=== PATIENT | female | born 1945 | race Caucasian/White ===

== ENCOUNTER → 2016-07-20 | Outpatient (CLI) | payer OTHER, BC ==
--- NOTE | 2016-07-20 11:26 | DIAGNOSTIC IMAGING REPORT ---
CT SCAN OF THE CHEST WITHOUT IV CONTRAST CLINICAL HISTORY: Follow-up pulmonary nodules. COMPARISON STUDY: CT dated 03/22/2016. TECHNIQUE: CT scan of the thorax was performed from the thoracic inlet to the upper abdomen. Images are reviewed in the axial, sagittal, and coronal planes. IV contrast was not administered for this examination. CT DOSE: 520.08 mGy.cm FINDINGS: Thyroid: Imaged portions of the thyroid gland are normal in size and attenuation. Thoracic aorta: There is atherosclerotic calcification of the thoracic aorta, which is normal in caliber and demonstrates standard 3-vessel arch anatomy. Heart: The heart is top normal in size and without pericardial effusion. The coronary arteries are densely calcified. The pulmonary trunk is normal in caliber. Lungs and pleural spaces: There is no airspace consolidation typical for pneumonia or pleural effusion. Dependent atelectasis is observed. The trachea and central airways are clear. A small fat-containing Bochdalek hernia is noted at the left lung base. There are numerous (greater than 10) small pulmonary and pleural-based nodules. The majority of these measure less than 3 mm. The largest nodule is located in the right lower lobe as seen on image #138 and measures 8 mm. These nodules are unchanged and a 03/22/2016 examination. No new pulmonary nodules are identified. Mediastinum: There is no mediastinal lymphadenopathy. Kimmy: Not well assessed without IV contrast. Axillae: There is no axillary lymphadenopathy. Upper abdomen: Cholecystectomy clips are noted. The partially imaged kidneys demonstrate cortical atrophy. There are 2 nonobstructing calculi seen in the upper pole of the left kidney which measure up to 6 mm. A tiny hiatal hernia is observed. Skeletal structures: The skeletal structures are osteopenic. No lytic or blastic bony lesions are seen. IMPRESSION: 1. There are numerous (greater than 10) indeterminant but low suspicion pulmonary and pleural-based nodules. The largest measures up to 8 mm as seen in the right lower lobe, and these are unchanged from the 03/22/2016 examination. Continued follow-up is recommended to document 2 years of stability. See below. 2. There is no airspace consolidation or pleural effusion. 3. Nonobstructing left renal calculi. 4. Additional findings as above. Please refer to below summary of Fleischner criteria recommendations for follow-up of incidental CT nodules (Jordana Rosenthal, Guidelines for management of small pulmonary nodules detected on CT scans: A statement from the Fleischner Society, Radiology 237: [phone].) Low Risk Patient: Minimal or no smoking or other known risk factors for malignancy <=4 mm: No follow-up needed. >4-6 mm: Initial follow-up CT at 12 months; if unchanged, no further follow-up. >6-8 mm: Initial follow-up CT at 6-12 months then at 18-24 months if no change. >8 mm: Follow-up CT at \R\3, 9, 24 months, or PET and/or biopsy. High Risk Patient: History of smoking or other known risk factors <=4 mm: Follow-up at 12 months; if unchanged, no further follow-up. >4-6 mm: Initial follow-up CT at 6-12 months then at 18-24 months if no change. >6-8 mm: Initial follow-up CT at 3-6 months then at 9-12 and 24 months if no change. >8 mm: Same as low risk patient. Note: Nodule size measured as average of length and width. Ground glass or partly solid nodules may require longer follow-up to exclude indolent adenocarcinoma. Electronically signed by: Tushar Silva M.D. 07/20/2016 11:25 AM Dictated Date/Time: 07/20/2016 11:18 AM
== END | disposition home or self-care (01) ==
LOC: C.CTS 11:03
PROVIDERS: ATTEND Internal Medicine Pulmonary Disease
DX: R91.8 Other nonspecific abnormal finding of lung field (principal)

== ENCOUNTER → 2017-04-29 | Outpatient (CLI) | payer OTHER, BC ==
--- NOTE | 2017-04-29 11:13 | DIAGNOSTIC IMAGING REPORT ---
(CHEST) THORAX WITHOUT CT DOSE: 521.29 mGycm CLINICAL HISTORY: 71 years-old Female with MULTIPLE LUNG NODULES. Follow-up study to assess pulmonary nodules TECHNIQUE: Multiaxial CT images of the chest were performed without contrast. A dose lowering technique was utilized adhering to the principles of ALARA. COMPARISON: CT chest 07/20/2016 and 03/22/2016 FINDINGS: The thyroid is homogeneous. No pathologic adenopathy about the chest identified. Heart is normal in size without pericardial effusion. There is moderate mixed plaquing of the thoracic aorta. There is no pneumothorax or pleural effusion. Minimal subpleural bleb formations are noted along apices. Again noted are greater than 10 noncalcified solid pulmonary nodules throughout the lungs bilaterally, several of which are pleural-based. The largest nodule is 8 mm within the superior segment right lower lobe as seen on image 154 of series 4, unchanged dating back to 03/19/2016 the remainder of the pulmonary nodules measure in the 2-4 mm range with a 5 mm pulmonary nodule seen within the medial segment right middle lobe on image 207 series 4, also unchanged. 5 mm pleural-based nodule of the lateral basal segment left lower lobe on image 230 of series 4 is also unchanged. No new or enlarging pulmonary nodules are identified. Central airways are patent. Small left Bochdalek hernia. Imaged upper abdominal structures are unremarkable. The soft tissues are within normal limits. Bones appear intact. Multilevel endplate spurring of the spine. IMPRESSION: 1. No acute cardiopulmonary process. 2. Multiple bilateral solid noncalcified pulmonary nodules are again seen within a multilobar distribution, most of which measure in the 2-4 mm range. The largest nodule is again noted to be within the superior segment right lower lobe measuring up to 8 mm. These appear stable dating back to 03/19/2016. Follow-up guidelines are provided below. 3. Additional findings as above. Please refer to below summary of Fleischner criteria recommendations for follow-up of incidental CT nodules (Jordana Rosenthal, Guidelines for management of small pulmonary nodules detected on CT scans: A statement from the Fleischner Society, Radiology 237: [phone].) SOLID NODULES Multiple nodules size: <6 mm * Low risk patients: no routine follow-up * high risk patients: optional CT at 12 months Multiple nodules size: 6-8 mm * Low risk patients: follow-up at 3-6 months, then consider further follow-up at 18-24 months * high risk patients: follow-up at 3-6 months, then at 18-24 months if no change Multiple nodules size: >8 mm * Low risk patients: follow-up at 3-6 months, then consider further follow-up at 18-24 months * high risk patients: follow-up at 3-6 months, then at 18-24 months if no change Note: newly detected indeterminate nodule in persons 35 years of age or older. * Low risk patients: minimal or absent history of smoking and/or other known risk factors * high risk patients: history of smoking or of other known risk factors (e.g. first degree relative with lung cancer, or exposure to asbestos, radon, uranium) * if a nodule up to 8 mm is partly solid or is ground glass further follow-up is required after 24 months to exclude possible slow growing adenocarcinoma (YUNG) The above report was generated using voice recognition software. It may contain grammatical, syntax or spelling errors. Electronically signed by: Aba Colón M.D. 04/29/2017 11:12 AM Dictated Date/Time: 04/29/2017 11:01 AM
== END | disposition home or self-care (01) ==
LOC: C.CTS 10:28
PROVIDERS: ATTEND Internal Medicine Pulmonary Disease
DX: R91.8 Other nonspecific abnormal finding of lung field (principal)

== ENCOUNTER 2022-08-19 15:20 | Observation (INO) ==
[2022-08-19] MEDS ORDERED: ACETAMINOPHEN 1,000 MG/100 ML VIAL IV STA (15:47)
[2022-08-19] MEDS ORDERED: CEFEPIME 2,000 MG/20 ML VIAL IV STA (15:51)
--- NOTE | 2022-08-19 15:57 | Emergency Department Note ---
Impression & Plan COVID-19, Hypothermia, Renal insufficiency, Dehydration, Hypertensive urgency, Intractable nausea and vomiting, Elevated lactic acid level ED Provider Note NAME: REMIGIO AMIN AGE: 76 SEX: F ARRIVES VIA: Ambulance INFORMANT: Patient ED PROVIDER(S): Carter Alexandra MD CHIEF COMPLAINT: Confusion, weakness, Covid-19 PLAN: Disposition: Admit MEDICAL DECISION MAKING: The patient is a 76-year-old woman with a past medical history of hypertension, hyperlipidemia with report of recent COVID-19 infection in the past 10 days who presents to the emergency department via EMS with worsening generalized weakness and confusion over the past several days. On arrival is made to emergency department the patient is a poor historian is alert to self and place but cannot provide details. The patient was given DuoNeb for treatment of shortness of breath by EMS. On initial evaluation the patient is noted to be hypothermic with rectal temperature of 35.7. Heart rate in the 50s and blood pressure 200/60s. O2 saturation is 100% on room air. Given patient's hypothermia with confusion she was treated for sepsis and received warmed IV fluid hydration with 30 cc/kg of normal saline per ideal body weight, warming blanket, empiric antibiotics with cefepime. EKG without overt acute ischemia. CXR with interstitial thickening has nonspecific. WBC, H/H and platelets within normal limits. Chemistry without metabolic acidosis. VBG demonstrates mild alkalemia likely secondary to hyperventilation with PCO2 of 34. Creatinine is 1.5 without prior values for comparison. BUN 38 with BUN/creatinine> 20 consistent with patient's clinically dry appearance. Initial lactic acid was 3.7 with repeat lactic acid following IV fluid hydration clear to 1.7. LFTs unremarkable. High-sensitivity troponin 5.8, within normal limits. Lipase within normal limits. Procalcitonin is undetectable. TSH within normal limits. UA demonstrates WBCs with leuk esterase although with no bacteria and 20-30 epithelial cells. Respiratory viral panel/[employer] confirms COVID-19 infection with positive COVID-[address] of the head was performed and was negative for acute abnormality. CT abdomen pelvis also negative for acute abnormality. CT of the chest negative for PE further characterizing interstitial thickening however no focal consolidation. Upon repeat evaluations the patient did show progressive improvement in mental status though did report continued headache despite improvement initially from systolic blood pressure from the 230s to 180s but then would spike again with episode of nausea and vomiting. Following treatment with additional hydration and treatment with dexamethasone, diphenhydramine and Compazine for migraine blood pressure improved significantly to the 140s-150s/60s-80s. Patient and family at bedside agree with plan for admission for further management. Case was discussed with Dr. Mueller, [facility], who will evaluate the patient for admission. Triage Nursing notes reviewed and agree them. Prior/outside medical records reviewed Vital Signs: reviewed Differential diagnosis: Infection, dehydration, metabolic abnormality, hypo/hyperglycemia, electrolyte disturbance, anemia, hypoxia, cardiac sources, intracerebral event, toxicologic, neurologic, as well as other pathologies. ER treatment provided: See below. Diagnostics interpreted by me: ECG: Sinus bradycardia, 56 bpm, no ectopy, no overt ST elevation or depression, QTc 482, QRS 92. Cardiac Monitoring: An order for continuous cardiac monitoring was placed and demonstrated Sinus bradycardia, 56 bpm, no ectopy. Laboratory studies: See below Imaging studies: See below Consultation(s): Case was discussed with Dr. Mueller, [facility], who will evaluate the patient for admission. HPI: The patient is a 76-year-old woman with a past medical history of hypertension, hyperlipidemia with report of recent COVID-19 infection in the past 10 days who presents emergency department with worsening generalized weakness and confusion over the past several days. On arrival is made to emergency department the patient is a poor historian is alert to self and place but cannot provide details. The patient was given DuoNeb for treatment of shortness of breath by EMS. ROS: See above HPI for pertinent positives & negatives. A total of 10 systems reviewed and were otherwise negative. VITALS:See Below PHYSICAL EXAMINATION: GENERAL: Awake, alert, ill-appearing, in no distress HENT: Normocephalic, atraumatic. Oropharynx with dry mucous membranes and otherwise unremarkable. EYES: Normal conjunctiva. Sclera non-icteric. EOMI. No nystamgus. PEARRL. NECK: Supple. No nuchal rigidity. FROM. No JVD. RESPIRATORY: Clear to auscultation. CARDIAC: Regular rate, normal rhythm. Extremities warm and well perfused. Pulses equal. ABDOMEN: Soft, non-distended. No tenderness to palpation. No rebound or guarding. No masses. RECTAL: Deferred. MUSCULOSKELETAL: Chest examination reveals no tenderness. The back is symmetrical on inspection without obvious abnormality. There is no CVA tenderness to palpation. No joint edema. LOWER EXTREMITIES: Calves are equal size bilaterally and non-tender. No edema. No discoloration. NEURO: Mildly confused. Alert to self and place. No sensory or motor deficits noted. Generalized weakness with 4/5 strength and SILT x 4 extremities. DTRs wnl. No clonus. SKIN: No rash or jaundice noted. ED COURSE: Critical Care: I have personally spent greater than 75 minutes of critical care time in the direct management of this patient. This includes bedside care, interpretation of diagnostic studies, and testing, discussion with consultants, patient, and family members, and other required patient management activities. This 75 minutes is in excess of all separately billable procedures. Carter Alexandra MD Past Med/Surg History Medical History CAD (coronary artery disease) Diverticulosis Hyperlipidemia Pulmonary nodule Family History Other Family history non-contributory Social History Smoking Status: Former smoker Cigarettes Per Day: 40; Feels Safe at Home: Yes Allergies Allergies Allergy/AdvReac Type Severity Reaction Status Date / Time latex Allergy Hives Verified 08/19/22 16:15 Sulfa (Sulfonamide Allergy Hives Verified 08/19/22 16:15 Antibiotics) ciprofloxacin [From Cipro] AdvReac Severe Abdominal Verified 08/19/22 16:15 Pain cimetidine [From Tagamet] AdvReac Nausea Verified 08/19/22 16:15 metronidazole [From Flagyl] AdvReac Nausea Verified 08/19/22 16:15 SULFA Allergy Unknown HIVES Uncoded 08/19/22 16:15 Home Meds Home Medications Medication Instructions Recorded Confirmed Elderberry Tab 500 mg PO DAILY 08/19/22 08/19/22 ascorbic acid (vitamin C) 500 mg 500 mg PO DAILY 08/19/22 08/19/22 tablet (Vitamin C) aspirin 81 mg tablet,delayed 81 mg PO DAILY 08/19/22 08/19/22 release calcium carbonate-vitamin D3 600 1 tab PO DAILY 08/19/22 08/19/22 mg-125 unit tablet conjugated estrogens 0.625 mg/gram 0.625 mg vaginal 2XWK 08/19/22 08/19/22 vaginal cream (Premarin) dicyclomine 10 mg capsule 10 mg PO QID 08/19/22 08/19/22 fluticasone propionate 50 2 spray intranasal QAM 08/19/22 08/19/22 mcg/actuation nasal spray,suspension linaclotide 72 mcg capsule 72 mcg PO QAM 08/19/22 08/19/22 (Linzess) lutein 25 mg-zeaxanthin 5 mg 1 cap PO DAILY 08/19/22 08/19/22 capsule (Ocuvite Lutein) multivitamin 1 tab PO DAILY 08/19/22 08/19/22 ramipril 5 mg capsule 5 mg PO QAM 08/19/22 08/19/22 rosuvastatin 40 mg tablet 40 mg PO QAM 08/19/22 08/19/22 zinc 50 mg tablet 50 mg PO DAILY 08/19/22 08/19/22 Results & Data (ED) Vital Signs Vital Signs - 24 hr 08/19/22 15:25 08/19/22 15:30 08/19/22 15:55 Temperature Temperature Source Pulse Rate 56 L 59 L 63 Pulse Rate [Finger] Pulse Rate from SpO2 Sensor Respiratory Rate 24 28 H Respiratory Effort / Characteristics Labored Blood Pressure 205/66 H Blood Pressure [Left Arm] Blood Pressure Mean 112 Blood Pressure Mean [Left Arm] Pulse Oximetry 100 100 Oxygen Delivery Method Room Air Room Air Sepsis Recent Fever Within 48 Hours No Sepsis New/Unexplained Change in Mental Status Yes Sepsis Action Taken by Nursing No Action Required 08/19/22 16:05 08/19/22 15:29 08/19/22 15:34 Temperature 35.6 C L Temperature Source Rectal Pulse Rate 56 L 53 L Pulse Rate [Finger] 62 Pulse Rate from SpO2 Sensor Respiratory Rate 26 H 22 26 H Respiratory Effort / Characteristics Labored Blood Pressure 205/66 H 199/72 H Blood Pressure [Left Arm] 202/79 H Blood Pressure Mean 112 114 Blood Pressure Mean [Left Arm] 120 Pulse Oximetry 100 100 100 Oxygen Delivery Method Room Air Sepsis Recent Fever Within 48 Hours Sepsis New/Unexplained Change in Mental Status Sepsis Action Taken by Nursing 08/19/22 15:34 08/19/22 15:40 08/19/22 15:46 Temperature Temperature Source Pulse Rate 56 L 54 L 58 L Pulse Rate [Finger] Pulse Rate from SpO2 Sensor 57 L 53 L 57 L Respiratory Rate 18 25 H 22 Respiratory Effort / Characteristics Blood Pressure Blood Pressure [Left Arm] Blood Pressure Mean Blood Pressure Mean [Left Arm] Pulse Oximetry 100 100 100 Oxygen Delivery Method Sepsis Recent Fever Within 48 Hours Sepsis New/Unexplained Change in Mental Status Sepsis Action Taken by Nursing 08/19/22 15:46 08/19/22 15:50 08/19/22 16:00 Temperature Temperature Source Pulse Rate 59 L Pulse Rate [Finger] Pulse Rate from SpO2 Sensor 54 L Respiratory Rate 24 Respiratory Effort / Characteristics Blood Pressure 199/49 H 202/79 H Blood Pressure [Left Arm] Blood Pressure Mean 99 120 Blood Pressure Mean [Left Arm] Pulse Oximetry 100 Oxygen Delivery Method Sepsis Recent Fever Within 48 Hours Sepsis New/Unexplained Change in Mental Status Sepsis Action Taken by Nursing 08/19/22 16:00 08/19/22 16:10 08/19/22 16:15 Temperature Temperature Source Pulse Rate 54 L 54 L 55 L Pulse Rate [Finger] Pulse Rate from SpO2 Sensor 55 L 54 L 55 L Respiratory Rate 25 H 25 H 25 H Respiratory Effort / Characteristics Blood Pressure Blood Pressure [Left Arm] Blood Pressure Mean Blood Pressure Mean [Left Arm] Pulse Oximetry 100 100 100 Oxygen Delivery Method Sepsis Recent Fever Within 48 Hours Sepsis New/Unexplained Change in Mental Status Sepsis Action Taken by Nursing 08/19/22 16:15 08/19/22 16:20 08/19/22 16:21 Temperature Temperature Source Pulse Rate 75 94 H Pulse Rate [Finger] Pulse Rate from SpO2 Sensor 76 79 Respiratory Rate 17 25 H Respiratory Effort / Characteristics Blood Pressure 213/85 H Blood Pressure [Left Arm] Blood Pressure Mean 127 Blood Pressure Mean [Left Arm] Pulse Oximetry 100 79 L Oxygen Delivery Method Sepsis Recent Fever Within 48 Hours Sepsis New/Unexplained Change in Mental Status Sepsis Action Taken by Nursing 08/19/22 16:21 08/19/22 16:22 08/19/22 16:22 Temperature Temperature Source Pulse Rate 76 Pulse Rate [Finger] Pulse Rate from SpO2 Sensor 74 Respiratory Rate 29 H Respiratory Effort / Characteristics Blood Pressure 216/125 H 233/96 H Blood Pressure [Left Arm] Blood Pressure Mean 155 141 Blood Pressure Mean [Left Arm] Pulse Oximetry 99 Oxygen Delivery Method Sepsis Recent Fever Within 48 Hours Sepsis New/Unexplained Change in Mental Status Sepsis Action Taken by Nursing 08/19/22 16:30 08/19/22 16:40 08/19/22 17:02 Temperature Temperature Source Pulse Rate 70 Pulse Rate [Finger] Pulse Rate from SpO2 Sensor 58 L 61 Respiratory Rate 20 Respiratory Effort / Characteristics Blood Pressure Blood Pressure [Left Arm] Blood Pressure Mean Blood Pressure Mean [Left Arm] Pulse Oximetry 100 100 Oxygen Delivery Method Sepsis Recent Fever Within 48 Hours Sepsis New/Unexplained Change in Mental Status Sepsis Action Taken by Nursing 08/19/22 17:06 08/19/22 17:06 08/19/22 17:10 Temperature Temperature Source Pulse Rate 61 62 Pulse Rate [Finger] Pulse Rate from SpO2 Sensor 61 61 Respiratory Rate 17 18 Respiratory Effort / Characteristics Blood Pressure 183/109 H Blood Pressure [Left Arm] Blood Pressure Mean 133 Blood Pressure Mean [Left Arm] Pulse Oximetry 100 100 Oxygen Delivery Method Sepsis Recent Fever Within 48 Hours Sepsis New/Unexplained Change in Mental Status Sepsis Action Taken by Nursing 08/19/22 17:15 08/19/22 17:30 08/19/22 17:40 Temperature Temperature Source Pulse Rate 58 L 58 L 61 Pulse Rate [Finger] Pulse Rate from SpO2 Sensor 60 Respiratory Rate 19 17 21 Respiratory Effort / Characteristics Blood Pressure 195/70 H 190/84 H Blood Pressure [Left Arm] Blood Pressure Mean 111 119 Blood Pressure Mean [Left Arm] Pulse Oximetry 100 100 100 Oxygen Delivery Method Sepsis Recent Fever Within 48 Hours Sepsis New/Unexplained Change in Mental Status Sepsis Action Taken by Nursing 08/19/22 17:45 08/19/22 17:45 08/19/22 17:50 Temperature Temperature Source Pulse Rate 57 L 58 L Pulse Rate [Finger] Pulse Rate from SpO2 Sensor 58 L 57 L Respiratory Rate 25 H 18 Respiratory Effort / Characteristics Blood Pressure 180/79 H Blood Pressure [Left Arm] Blood Pressure Mean 112 Blood Pressure Mean [Left Arm] Pulse Oximetry 100 100 Oxygen Delivery Method Sepsis Recent Fever Within 48 Hours Sepsis New/Unexplained Change in Mental Status Sepsis Action Taken by Nursing 08/19/22 18:00 08/19/22 18:01 08/19/22 18:01 Temperature Temperature Source Pulse Rate 81 80 Pulse Rate [Finger] Pulse Rate from SpO2 Sensor 83 79 Respiratory Rate 34 H 26 H Respiratory Effort / Characteristics Blood Pressure 231/86 H Blood Pressure [Left Arm] Blood Pressure Mean 134 Blood Pressure Mean [Left Arm] Pulse Oximetry 98 100 Oxygen Delivery Method Sepsis Recent Fever Within 48 Hours Sepsis New/Unexplained Change in Mental Status Sepsis Action Taken by Nursing 08/19/22 18:10 08/19/22 18:14 08/19/22 18:14 Temperature Temperature Source Pulse Rate 59 L 58 L Pulse Rate [Finger] Pulse Rate from SpO2 Sensor 59 L 58 L Respiratory Rate 16 18 Respiratory Effort / Characteristics Blood Pressure 216/75 H Blood Pressure [Left Arm] Blood Pressure Mean 122 Blood Pressure Mean [Left Arm] Pulse Oximetry 100 100 Oxygen Delivery Method Sepsis Recent Fever Within 48 Hours Sepsis New/Unexplained Change in Mental Status Sepsis Action Taken by Nursing 08/19/22 18:20 08/19/22 19:00 08/19/22 18:30 Temperature 36.2 C L Temperature Source Rectal Pulse Rate 63 63 Pulse Rate [Finger] 64 Pulse Rate from SpO2 Sensor 64 Respiratory Rate 17 24 20 Respiratory Effort / Characteristics Blood Pressure 144/88 H Blood Pressure [Left Arm] 155/62 H Blood Pressure Mean 106 Blood Pressure Mean [Left Arm] 93 Pulse Oximetry 99 100 100 Oxygen Delivery Method Sepsis Recent Fever Within 48 Hours Sepsis New/Unexplained Change in Mental Status Sepsis Action Taken by Nursing 08/19/22 18:45 08/19/22 18:50 08/19/22 19:00 Temperature Temperature Source Pulse Rate 63 64 61 Pulse Rate [Finger] Pulse Rate from SpO2 Sensor 64 62 Respiratory Rate 20 18 17 Respiratory Effort / Characteristics Blood Pressure 155/67 H Blood Pressure [Left Arm] Blood Pressure Mean 96 Blood Pressure Mean [Left Arm] Pulse Oximetry 100 100 100 Oxygen Delivery Method Sepsis Recent Fever Within 48 Hours Sepsis New/Unexplained Change in Mental Status Sepsis Action Taken by Nursing 08/19/22 19:01 08/19/22 19:01 08/19/22 19:10 Temperature Temperature Source Pulse Rate 61 63 Pulse Rate [Finger] Pulse Rate from SpO2 Sensor 61 63 Respiratory Rate 18 19 Respiratory Effort / Characteristics Blood Pressure 166/62 H Blood Pressure [Left Arm] Blood Pressure Mean 96 Blood Pressure Mean [Left Arm] Pulse Oximetry 100 100 Oxygen Delivery Method Sepsis Recent Fever Within 48 Hours Sepsis New/Unexplained Change in Mental Status Sepsis Action Taken by Nursing 08/19/22 19:15 08/19/22 19:15 08/19/22 19:20 Temperature Temperature Source Pulse Rate 62 61 Pulse Rate [Finger] Pulse Rate from SpO2 Sensor 62 61 Respiratory Rate 18 20 Respiratory Effort / Characteristics Blood Pressure 147/98 H Blood Pressure [Left Arm] Blood Pressure Mean 114 Blood Pressure Mean [Left Arm] Pulse Oximetry 100 100 Oxygen Delivery Method Sepsis Recent Fever Within 48 Hours Sepsis New/Unexplained Change in Mental Status Sepsis Action Taken by Nursing 08/19/22 19:30 08/19/22 19:30 Temperature Temperature Source Pulse Rate 59 L Pulse Rate [Finger] Pulse Rate from SpO2 Sensor 58 L Respiratory Rate 19 Respiratory Effort / Characteristics Blood Pressure 154/64 H Blood Pressure [Left Arm] Blood Pressure Mean 94 Blood Pressure Mean [Left Arm] Pulse Oximetry 99 Oxygen Delivery Method Sepsis Recent Fever Within 48 Hours Sepsis New/Unexplained Change in Mental Status Sepsis Action Taken by Nursing Laboratory Data Attestation: I reviewed the patient's lab results. 08/19/22 15:32 08/19/22 15:32 Lab Results 08/19/22 08/19/22 08/19/22 Range/Units 15:32 15:32 15:32 WBC 10.77 (4.8-10.8) K/ul RBC 4.72 (4.20-5.40) M/uL Hgb 13.9 (12.0-16.0) g/dl Hct 40.5 (37.0-47.0) % MCV 85.8 (80.0-100.0) fL MCH 29.4 (25.0-34.0) pg MCHC 34.3 (32.0-36.0) g/dL RDW Std Deviation 39.9 (36.4-46.3) fL RDW Coeff of Dilia 12.8 (11.5-14.5) % Plt Count 203 (130-400) K/uL MPV 11.2 (9.4-12.4) fL Immature Gran % (Auto) 0.5 % Neut % (Auto) 70.0 % Lymph % (Auto) 20.0 % [place] % (Auto) 8.0 % Eos % (Auto) 1.2 % Baso % (Auto) 0.3 % Neut # (Auto) 7.55 H (1.40-6.50) K/uL Lymph # (Auto) 2.15 (1.2-3.4) K/uL [place] # (Auto) 0.86 H (0.11-0.59) K/uL Eos # (Auto) 0.13 (0-0.50) K/uL Baso # (Auto) 0.03 (0-0.2) K/uL Immature Gran # (Auto) 0.05 (0.01-0.20) K/uL VBG pH (7.36-7.41) VBG pCO2 (38-50) mmHg VBG pO2 mmHg VBG HCO3 mmol/L VBG O2 Saturation % VBG Base Excess mEq/L Sodium 137 (136-145) mmol/L Potassium 3.5 (3.5-5.1) mmol/L Chloride 103 (98-107) mmol/L Carbon Dioxide 23 (21-32) mmol/L Anion Gap 11 (3-11) BUN 38 H (6-23) mg/dl Creatinine 1.56 H (0.6-1.2) mg/dl Est Cr Clr Drug Dosing 38.7 ml/min Est GFR ( Amer) 37.0 ml/min Est GFR (Non-Af Amer) 31.9 ml/min BUN/Creatinine Ratio 24.4 H (10-20) Glucose 114 H (70-99(Fasting)) mg/dl Lactate (0.4-2.0) mmol/L Calcium 8.7 (8.5-10.1) mg/dl Phosphorus 2.8 (2.5-4.9) mg/dl Magnesium 1.9 (1.7-2.4) mg/dl Total Bilirubin 0.6 (0.2-1.0) mg/dl Direct Bilirubin 0.1 (0-0.2) mg/dl AST 35 (13-39) U/L ALT 46 (7-52) U/L Alkaline Phosphatase 32 L (34-104) U/L Troponin I High Sens 5.8 (0-14) pg/ml Total Protein 6.6 (6.0-8.3) gm/dl Albumin 3.9 (3.4-5.0) gm/dl Lipase 65 (11-82) U/L Procalcitonin < 0.05 (0-0.5) ng/ml TSH (0.300-4.500) uIu/ml Urine Color Urine Appearance (Clear) Urine pH (4.5-7.5) Ur Specific [place] (1.000-1.030) Urine Protein (Negative) Urine Glucose (UA) (Negative) Urine Ketones (Negative) Urine Blood (Negative) Urine Nitrite (Negative) Urine Bilirubin (Negative) Urine Urobilinogen (Negative) Ur Leukocyte Esterase (Negative) Urine WBC (Auto) (0-5) /hpf Urine RBC (Auto) (0-4) /hpf U Hyaline Cast (Auto) (0-5) /lpf U Epithel Cells (Auto) (0-5) /lpf Urine Bacteria (Auto) (Negative) Adenovirus (PCR) (NotDetected) B. pertussis DNA (PCR) (NotDetected) B.parapertussis DNA PCR (NotDetected) C. pneumoniae DNA (PCR) (NotDetected) Coronavirus OC43 (PCR) (NotDetected) Coronavirus HKU1 (PCR) (NotDetected) Coronavirus 229E (PCR) (NotDetected) SARS-CoV-2 (PCR) (NotDetected) Coronavirus NL63 (PCR) (NotDetected) Human Metapneumovir PCR (NotDetected) Influenza Type A (PCR) (NotDetected) Influenza Type B (PCR) (NotDetected) M. pneumoniae (PCR) (NotDetected) Parainfluenza 1 (PCR) (NotDetected) Parainfluenza 2 (PCR) (NotDetected) Parainfluenza 3 (PCR) (NotDetected) Parainfluenza 4 (PCR) (NotDetected) RSV (PCR) (NotDetected) Entero/Rhino (PCR) (NotDetected) 08/19/22 08/19/22 08/19/22 Range/Units 15:32 16:00 16:15 WBC (4.8-10.8) K/ul RBC (4.20-5.40) M/uL Hgb (12.0-16.0) g/dl Hct (37.0-47.0) % MCV (80.0-100.0) fL MCH (25.0-34.0) pg MCHC (32.0-36.0) g/dL RDW Std Deviation (36.4-46.3) fL RDW Coeff of Dilia (11.5-14.5) % Plt Count (130-400) K/uL MPV (9.4-12.4) fL Immature Gran % (Auto) % Neut % (Auto) % Lymph % (Auto) % [place] % (Auto) % Eos % (Auto) % Baso % (Auto) % Neut # (Auto) (1.40-6.50) K/uL Lymph # (Auto) (1.2-3.4) K/uL [place] # (Auto) (0.11-0.59) K/uL Eos # (Auto) (0-0.50) K/uL Baso # (Auto) (0-0.2) K/uL Immature Gran # (Auto) (0.01-0.20) K/uL VBG pH 7.49 H (7.36-7.41) VBG pCO2 34 L (38-50) mmHg VBG pO2 27 mmHg VBG HCO3 26 mmol/L VBG O2 Saturation < 60.0 % VBG Base Excess 2.9 mEq/L Sodium (136-145) mmol/L Potassium (3.5-5.1) mmol/L Chloride (98-107) mmol/L Carbon Dioxide (21-32) mmol/L Anion Gap (3-11) BUN (6-23) mg/dl Creatinine (0.6-1.2) mg/dl Est Cr Clr Drug Dosing ml/min Est GFR ( Amer) ml/min Est GFR (Non-Af Amer) ml/min BUN/Creatinine Ratio (10-20) Glucose (70-99(Fasting)) mg/dl Lactate 3.4 H* (0.4-2.0) mmol/L Calcium (8.5-10.1) mg/dl Phosphorus (2.5-4.9) mg/dl Magnesium (1.7-2.4) mg/dl Total Bilirubin (0.2-1.0) mg/dl Direct Bilirubin (0-0.2) mg/dl AST (13-39) U/L ALT (7-52) U/L Alkaline Phosphatase (34-104) U/L Troponin I High Sens (0-14) pg/ml Total Protein (6.0-8.3) gm/dl Albumin (3.4-5.0) gm/dl Lipase (11-82) U/L Procalcitonin (0-0.5) ng/ml TSH 3.020 (0.300-4.500) uIu/ml Urine Color Urine Appearance (Clear) Urine pH (4.5-7.5) Ur Specific [place] (1.000-1.030) Urine Protein (Negative) Urine Glucose (UA) (Negative) Urine Ketones (Negative) Urine Blood (Negative) Urine Nitrite (Negative) Urine Bilirubin (Negative) Urine Urobilinogen (Negative) Ur Leukocyte Esterase (Negative) Urine WBC (Auto) (0-5) /hpf Urine RBC (Auto) (0-4) /hpf U Hyaline Cast (Auto) (0-5) /lpf U Epithel Cells (Auto) (0-5) /lpf Urine Bacteria (Auto) (Negative) Adenovirus (PCR) (NotDetected) B. pertussis DNA (PCR) (NotDetected) B.parapertussis DNA PCR (NotDetected) C. pneumoniae DNA (PCR) (NotDetected) Coronavirus OC43 (PCR) (NotDetected) Coronavirus HKU1 (PCR) (NotDetected) Coronavirus 229E (PCR) (NotDetected) SARS-CoV-2 (PCR) (NotDetected) Coronavirus NL63 (PCR) (NotDetected) Human Metapneumovir PCR (NotDetected) Influenza Type A (PCR) (NotDetected) Influenza Type B (PCR) (NotDetected) M. pneumoniae (PCR) (NotDetected) Parainfluenza 1 (PCR) (NotDetected) Parainfluenza 2 (PCR) (NotDetected) Parainfluenza 3 (PCR) (NotDetected) Parainfluenza 4 (PCR) (NotDetected) RSV (PCR) (NotDetected) Entero/Rhino (PCR) (NotDetected) 08/19/22 08/19/22 08/19/22 Range/Units 16:30 18:26 19:04 WBC (4.8-10.8) K/ul RBC (4.20-5.40) M/uL Hgb (12.0-16.0) g/dl Hct (37.0-47.0) % MCV (80.0-100.0) fL MCH (25.0-34.0) pg MCHC (32.0-36.0) g/dL RDW Std Deviation (36.4-46.3) fL RDW Coeff of Dilia (11.5-14.5) % Plt Count (130-400) K/uL MPV (9.4-12.4) fL Immature Gran % (Auto) % Neut % (Auto) % Lymph % (Auto) % [place] % (Auto) % Eos % (Auto) % Baso % (Auto) % Neut # (Auto) (1.40-6.50) K/uL Lymph # (Auto) (1.2-3.4) K/uL [place] # (Auto) (0.11-0.59) K/uL Eos # (Auto) (0-0.50) K/uL Baso # (Auto) (0-0.2) K/uL Immature Gran # (Auto) (0.01-0.20) K/uL VBG pH (7.36-7.41) VBG pCO2 (38-50) mmHg VBG pO2 mmHg VBG HCO3 mmol/L VBG O2 Saturation % VBG Base Excess mEq/L Sodium (136-145) mmol/L Potassium (3.5-5.1) mmol/L Chloride (98-107) mmol/L Carbon Dioxide (21-32) mmol/L Anion Gap (3-11) BUN (6-23) mg/dl Creatinine (0.6-1.2) mg/dl Est Cr Clr Drug Dosing ml/min Est GFR ( Amer) ml/min Est GFR (Non-Af Amer) ml/min BUN/Creatinine Ratio (10-20) Glucose (70-99(Fasting)) mg/dl Lactate 1.7 (0.4-2.0) mmol/L Calcium (8.5-10.1) mg/dl Phosphorus (2.5-4.9) mg/dl Magnesium (1.7-2.4) mg/dl Total Bilirubin (0.2-1.0) mg/dl Direct Bilirubin (0-0.2) mg/dl AST (13-39) U/L ALT (7-52) U/L Alkaline Phosphatase (34-104) U/L Troponin I High Sens (0-14) pg/ml Total Protein (6.0-8.3) gm/dl Albumin (3.4-5.0) gm/dl Lipase (11-82) U/L Procalcitonin (0-0.5) ng/ml TSH (0.300-4.500) uIu/ml Urine Color Yellow Urine Appearance Clear (Clear) Urine pH 8.0 H (4.5-7.5) Ur Specific [place] 1.009 (1.000-1.030) Urine Protein Trace H (Negative) Urine Glucose (UA) Negative (Negative) Urine Ketones Negative (Negative) Urine Blood Negative (Negative) Urine Nitrite Negative (Negative) Urine Bilirubin Negative (Negative) Urine Urobilinogen Negative (Negative) Ur Leukocyte Esterase 1+ H (Negative) Urine WBC (Auto) 10-30 H (0-5) /hpf Urine RBC (Auto) 0-4 (0-4) /hpf U Hyaline Cast (Auto) 1-5 (0-5) /lpf U Epithel Cells (Auto) 20-30 H (0-5) /lpf Urine Bacteria (Auto) Negative (Negative) Adenovirus (PCR) Not Detected (NotDetected) B. pertussis DNA (PCR) Not Detected (NotDetected) B.parapertussis DNA PCR Not Detected (NotDetected) C. pneumoniae DNA (PCR) Not Detected (NotDetected) Coronavirus OC43 (PCR) Not Detected (NotDetected) Coronavirus HKU1 (PCR) Not Detected (NotDetected) Coronavirus 229E (PCR) Not Detected (NotDetected) SARS-CoV-2 (PCR) DETECTED A* (NotDetected) Coronavirus NL63 (PCR) Not Detected (NotDetected) Human Metapneumovir PCR Not Detected (NotDetected) Influenza Type A (PCR) Not Detected (NotDetected) Influenza Type B (PCR) Not Detected (NotDetected) M. pneumoniae (PCR) Not Detected (NotDetected) Parainfluenza 1 (PCR) Not Detected (NotDetected) Parainfluenza 2 (PCR) Not Detected (NotDetected) Parainfluenza 3 (PCR) Not Detected (NotDetected) Parainfluenza 4 (PCR) Not Detected (NotDetected) RSV (PCR) Not Detected (NotDetected) Entero/Rhino (PCR) Not Detected (NotDetected) Administered Medications Discontinued Medications Dexamethasone Sodium Phosphate (DexamethasonePf 10 Mg/Ml Vial) 10 mg IV NOW ONE Stop: 08/19/22 18:06 Last Admin: 08/19/22 18:21 Dose: 10 mg Documented By: PATY Diphenhydramine HCl (Diphenhydramine 50 Mg/Ml Vial) 25 mg IV NOW STA Stop: 08/19/22 18:04 Last Admin: 08/19/22 18:10 Dose: 25 mg Documented By: PATY Sodium Chloride (Nss 1000ml) 1,000 mls @ 999 mls/hr IV .Q1H1M JEANNA Stop: 08/19/22 18:00 Last Infusion: 08/19/22 18:39 Dose: 0 mls/hr Documented By: Admin: 08/19/22 17:35 Dose: 999 mls/hr Documented By: Infusion: 08/19/22 17:14 Dose: 0 mls/hr Documented By: Admin: 08/19/22 16:12 Dose: 999 mls/hr Documented By: GEETHA Sodium Chloride (Nss 1000ml) 1,000 mls @ 999 mls/hr IV .Q1H1M JEANNA Stop: 08/19/22 17:00 Last Infusion: 08/19/22 18:40 Dose: 0 mls/hr Documented By: Admin: 08/19/22 17:35 Dose: 999 mls/hr Documented By: GEETHA Acetaminophen (Ofirmev) 1,000 mg in 100 mls @ 400 mls/hr IV NOW STA Stop: 08/19/22 16:01 Last Infusion: 08/19/22 17:13 Dose: 0 mls/hr Documented By: Admin: 08/19/22 16:13 Dose: 400 mls/hr Documented By: GEETHA Cefepime HCl (Maxipime) 2,000 mg in 20 mls @ 5 mls/min IV NOW STA; Protocol Stop: 08/19/22 15:54 Last Admin: 08/19/22 16:14 Dose: 5 mls/min Documented By: GEETHA Famotidine (Pepcid 20mg Iv Push) 20 mg in 5 mls @ 2.5 mls/min IV NOW STA Stop: 08/19/22 16:25 Last Admin: 08/19/22 17:35 Dose: 2.5 mls/min Documented By: GEETHA Prochlorperazine (Compazine) 2 mls @ 1 mls/min IV ONE ONE Stop: 08/19/22 18:05 Last Admin: 08/19/22 18:10 Dose: 1 mls/min Documented By: PATY Ioversol (Optiray 320 500ml) 117 ml IV ONCE ONE Stop: 08/19/22 16:59 Last Admin: 08/19/22 16:58 Dose: 117 ml Documented By: STACEY Ondansetron HCl (Ondansetron Inj 2 Mg/Ml 2 Ml Vial) Confirm Administered Dose 4 mg .ROUTE .STK-MED ONE Stop: 08/19/22 16:23 Last Admin: 08/19/22 16:32 Dose: 4 mg Documented By: GEETHA Ondansetron HCl (Ondansetron Inj 2 Mg/Ml 2 Ml Vial) 4 mg IV NOW STA Stop: 08/19/22 16:27 Last Admin: 08/19/22 17:13 Dose: Not Given Documented By: GEETHA Imaging Data Radiologist's Impression: Abdomen/Pelvis CT 08/19/22 15:[address] WITH IV CONTRAST CT DOSE: 3880.64 mGy.cm HISTORY: weakness, ams, covid, sob TECHNIQUE: Multiaxial CT images of the abdomen and pelvis were performed following the use of intravenous contrast. A dose lowering technique was utilized adhering to the principles of ALARA. COMPARISON STUDY: None. FINDINGS: Mild interstitial thickening noted at the lung bases. No pneumoperitoneum. No pneumatosis. Degenerative changes within the lumbar spine. No acute fractures. Small fat-containing left-sided Bochdalek hernia. There is a small hiatus hernia noted. There are fat-containing bilateral inguinal hernias, left greater than right. Cholecystectomy. The liver, spleen, adrenal glands, and pancreas are unremarkable. Calcified plaque within the normal caliber abdominal aorta. No retroperitoneal lymphadenopathy. The left kidney enhances normally. No hydronephrosis. There are 2 hypodense lesions within the right kidney with the largest in the lower pole posteriorly measuring 13 mm. These favor cysts. No pelvic lymphadenopathy or pelvic free fluid. Prior hysterectomy. The bladder is decompressed by a Saab catheter. Colonic diverticulosis. No evidence for acute diverticulitis. No bowel wall thickening or obstruction. IMPRESSION: 1. No bowel wall thickening or obstruction. 2. Colonic diverticulosis. No evidence for acute diverticulitis. 3. No hydronephrosis. 4. Cholecystectomy and hysterectomy. 5. Additional findings as described above. ACT 112: Negative or not required by law. Electronically signed by: Blair Valdovinos M.D. 08/19/2022 5:56 PM Chest CTA 08/19/22 15:47 CHEST CTA for PULMONARY ARTERIES CT DOSE: HISTORY: weakness, ams, covid, shortness of breath., r/o PE TECHNIQUE: Multiaxial CT images of the chest were performed following the intr avenous administration of contrast to evaluate the pulmonary arteries. Maximal intensity projection images were also obtained. A dose lowering technique was utilized adhering to the principles of ALARA. COMPARISON STUDY: Chest CT 05/04/2019. FINDINGS: Normal thyroid gland. No mediastinal or hilar lymphadenopathy. The heart is mildly enlarged. There is a small hiatus hernia. No pleural or pericardial effusions. Normal caliber thoracic aorta with no evidence for a dissection. There is mild calcified plaque within the thoracic aorta. Severe cor onary artery calcifications are noted. No filling defects within the pulmonary arteries to suggest a pulmonary embolus. No suspicious lytic are blastic osseous lesions. No pneumothorax. A few scattered subcentimeter pulmonary nodules measuring up to 4 mm remain stable. These are likely benign given the long-term stability. No new pulmonary nodules identified. There is mild interstitial thickening most pronounced within the periphery and lung bases. This has progressed compared the prior study and favors chronic interstitial changes. Otherwise, no new focal lung consolidations to suggest pneumonia. IMPRESSION: 1. No evidence for a pulmonary embolus. 2. Mild cardiomegaly. 3. Progressive mild interstitial thickening seen along the periphery and lung bases. This favors chronic interstitial lung disease. 4. Otherwise, no new focal lung consolidations to suggest a pneumonia. 3. Stable scattered subcentimeter pulmonary nodules which are likely benign. ACT 112: Negative or not required by law. Electronically signed by: Blair Valdovinos M.D. 08/19/2022 5:[address] 08/19/22 15:[address] DOSE: HISTORY: weakness, altered mental status, covid, sob TECHNIQUE: Multiaxial CT images of the head were performed without the use of intravenous contrast. Automated exposure control was utilized for this study. A dose lowering technique was utilized adhering to the principles of ALARA. Comparison: None. Findings: Mild mucosal thickening within the ethmoid air cells. The mastoid air cells are clear. The calvarium and skull base are intact. The ventricles and sulci are within normal limits. There is no mass, hematoma, midline shift, or acute infarct. Impression: No acute intracranial abnormality. ACT 112: Negative or not required by law. Electronically signed by: Blair Valdovinos M.D. 08/19/2022 5:09 PM Chest X-Ray 08/19/22 15:48 XR chest 1V portable HISTORY: Sepsis COMPARISON: Chest CT 05/04/2019. FINDINGS: No pneumothorax. No pleural effusions. The cardiac silhouette remains mildly enlarged. Mild interstitial thickening which is likely chronic. Otherwise, no focal lung consolidations to suggest a pneumonia. No evidence for pulmonary edema. There are calcifications within the aortic knob. IMPRESSION: 1. Mild cardiomegaly, unchanged. 2. Mild interstitial thickening which is likely chronic. No focal lung consolidations to suggest a pneumonia. ACT 112: Negative or not required by law. Electronically signed by: Blair Valdovinos M.D. 08/19/2022 5:11 PM Discharge Plan Visit Data Chief Complaint: Illness Stated Complaint: generalized illness, covid + 2/13 ED Provider: Carter Alexandra Discharge Problem: COVID-19, Hypothermia, Renal insufficiency, Dehydration, Hypertensive urgency, Intractable nausea and vomiting, Elevated lactic acid level Discharge Instructions Interventions: ED Discharge Assessment Last Done: 08/19/22 22:40
[2022-08-19] MEDS ORDERED: SODIUM CHLORIDE 0.9% 1000ML 1,000 ML IV SCH (16:00)
[2022-08-19 16:07] LABS: Basophils # (auto) 0.03 K/uL (0-0.2); Basophils % (auto) 0.3 %; Eosinophils # (auto) 0.13 K/uL (0-0.50); Eosinophils % (auto) 1.2 %; Hematocrit (blood only) 40.5 % (37.0-47.0); Hemoglobin 13.9 g/dl (12.0-16.0); Immature Granulocytes # (auto) 0.05 K/uL (0.01-0.20); Immature Granulocytes % (auto) 0.5 %; Lymphocytes # (auto) 2.15 K/uL (1.2-3.4); Mean Corpuscular Hemoglobin 29.4 pg (25.0-34.0); Mean Corpuscular Hgb Conc 34.3 g/dL (32.0-36.0); Mean Corpuscular Volume 85.8 fL (80.0-100.0); Mean Platelet Volume 11.2 fL (9.4-12.4); Monocytes # (auto) 0.86 K/uL (0.11-0.59); Neutrophils # (auto) 7.55 K/uL (1.40-6.50); Platelet Count 203 K/uL (130-400); RDW Coefficient of Variation 12.8 % (11.5-14.5); RDW Standard Deviation 39.9 fL (36.4-46.3); Red Blood Count 4.72 M/uL (4.20-5.40); White Blood Count 10.77 K/ul (4.8-10.8)
[2022-08-19] MEDS: SODIUM CHLORIDE 0.9% 1000ML 1,000 ML IV SCH ×3 (16:12→23:47)
[2022-08-19 16:21] LABS: Albumin Level 3.9 gm/dl (3.4-5.0); BUN Creatinine Ratio 24.4 (10-20); Bilirubin Direct 0.1 mg/dl (0-0.2); Bilirubin,Total 0.6 mg/dl (0.2-1.0); Calcium 8.7 mg/dl (8.5-10.1); Creatinine Clr Calc Pharmacy 38.7 ml/min; Est GFR (Non-African American) 31.9 ml/min; Magnesium 1.9 mg/dl (1.7-2.4); Phosphorus 2.8 mg/dl (2.5-4.9); Potassium 3.5 mmol/L (3.5-5.1); Total Protein 6.6 gm/dl (6.0-8.3)
[2022-08-19] MEDS ORDERED: ONDANSETRON INJ 2 MG/ML 2 ML VIAL ONE (16:22)
[2022-08-19] MEDS ORDERED: FAMOTIDINE 20MG IV PUSH 20 MG/5 ML SYR IV STA (16:24)
[2022-08-19] MEDS ORDERED: ONDANSETRON INJ 2 MG/ML 2 ML VIAL IV STA (16:26)
[2022-08-19 16:27] LABS: Troponin I High Sensitivity 5.8 pg/ml (0-14)
[2022-08-19 16:35] LABS: Base Excess VBG 2.9 mEq/L; HCO3 VBG 26 mmol/L; Oxygen Saturation VBG < 60.0 %; PCO2 VBG 34 mmHg (38-50); PO2 VBG 27 mmHg; pH VBG 7.49 (7.36-7.41)
[2022-08-19 16:55] LABS: Appearance Urine Clear (Clear); Bacteria Urine Automated Negative (Negative); Bilirubin Urine Negative (Negative); Blood Urine Negative (Negative); Color Urine Yellow; Epithelial Cell Urine Auto 20-30 /lpf (0-5); Glucose Urine UA Negative (Negative); Ketones Urine Negative (Negative); Leukocyte Esterase Urine 1+ (Negative); Nitrite Urine Negative (Negative); RBC Urine Automated 0-4 /hpf (0-4); Specific Gravity Urine 1.009 (1.000-1.030); Urobilinogen Urine Negative (Negative)
[2022-08-19 16:56] LABS: Protein Urine Trace (Negative)
[2022-08-19] MEDS ORDERED: OPTIRAY 320 500ml IV ONE (16:58)
--- NOTE | 2022-08-19 17:12 | XRay Report ---
XR chest 1V portable HISTORY: Sepsis COMPARISON: Chest CT 05/04/2019. FINDINGS: No pneumothorax. No pleural effusions. The cardiac silhouette remains mildly enlarged. Mild interstitial thickening which is likely chronic. Otherwise, no focal lung consolidations to suggest a pneumonia. No evidence for pulmonary edema. There are calcifications within the aortic knob. IMPRESSION: 1. Mild cardiomegaly, unchanged. 2. Mild interstitial thickening which is likely chronic. No focal lung consolidations to suggest a pn eumonia. ACT 112: Negative or not required by law. Electronically signed by: Blair Valdovinos M.D. 08/19/2022 5:11 PM
--- NOTE | 2022-08-19 17:12 | CT Scan Report ---
HEAD CT NONCONTRAST CT DOSE: HISTORY: weakness, altered mental status, covid, sob TECHNIQUE: Multiaxial CT images of the head were performed without the use of intravenous contrast. A utomated exposure control was utilized for this study. A dose lowering technique was utilized adheri ng to the principles of ALARA. Comparison: None. Findings: Mild mucosal thickening within the ethmoid air cells. The mastoid air cells are clear. The calvarium and skull base are intact. The ventricles and sulci are within normal limits. There is no m ass, hematoma, midline shift, or acute infarct. Impression: No acute intracranial abnormality. ACT 112: Negative or not required by law. Electronically signed by: Blair Valdovinos M.D. 08/19/2022 5:09 PM
--- NOTE | 2022-08-19 17:50 | CT Scan Report ---
CHEST CTA for PULMONARY ARTERIES CT DOSE: HISTORY: weakness, ams, covid, shortness of breath., r/o PE TECHNIQUE: Multiaxial CT images of the chest were performed following the intravenous administration of contrast to evaluate the pulmonary arteries. Maximal intensity projection images were also obtaine d. A dose lowering technique was utilized adhering to the principles of ALARA. COMPARISON STUDY: Chest CT 05/04/2019. FINDINGS: Normal thyroid gland. No mediastinal or hilar lymphadenopathy. The heart is mildly enlarged . There is a small hiatus hernia. No pleural or pericardial effusions. Normal caliber thoracic aorta with no evidence for a dissection. There is mild calcified plaque within the thoracic aorta. Severe c oronary artery calcifications are noted. No filling defects within the pulmonary arteries to suggest a pulmonary embolus. No suspicious lytic are blastic osseous lesions. No pneumothorax. A few scattere d subcentimeter pulmonary nodules measuring up to 4 mm remain stable. These are likely benign given t he long-term stability. No new pulmonary nodules identified. There is mild interstitial thickening mo st pronounced within the periphery and lung bases. This has progressed compared the prior study and f avors chronic interstitial changes. Otherwise, no new focal lung consolidations to suggest pneumonia. IMPRESSION: 1. No evidence for a pulmonary embolus. 2. Mild cardiomegaly. 3. Progressive mild interstitial thickening seen along the periphery and lung bases. This favors bsa/aml compliance officer williams interstitial lung disease. 4. Otherwise, no new focal lung consolidations to suggest a pneumonia. 3. Stable scattered subcentimeter pulmonary nodules which are likely benign. ACT 112: Negative or not required by law. Electronically signed by: Blair Valdovinos M.D. 08/19/2022 5:48 PM
--- NOTE | 2022-08-19 17:58 | CT Scan Report ---
ABDOMEN AND PELVIS CT WITH IV CONTRAST CT DOSE: 3880.64 mGy.cm HISTORY: weakness, ams, covid, sob TECHNIQUE: Multiaxial CT images of the abdomen and pelvis were performed following the use of intrave nous contrast. A dose lowering technique was utilized adhering to the principles of ALARA. COMPARISON STUDY: None. FINDINGS: Mild interstitial thickening noted at the lung bases. No pneumoperitoneum. No pneumatosis. Degenerative changes within the lumbar spine. No acute fractures. Small fat-containing left-sided Boc hdalek hernia. There is a small hiatus hernia noted. There are fat-containing bilateral inguinal larisa ias, left greater than right. Cholecystectomy. The liver, spleen, adrenal glands, and pancreas are un remarkable. Calcified plaque within the normal caliber abdominal aorta. No retroperitoneal lymphadeno blanka. The left kidney enhances normally. No hydronephrosis. There are 2 hypodense lesions within the right kidney with the largest in the lower pole posteriorly measuring 13 mm. These favor cysts. No p elvic lymphadenopathy or pelvic free fluid. Prior hysterectomy. The bladder is decompressed by a Fole y catheter. Colonic diverticulosis. No evidence for acute diverticulitis. No bowel wall thickening or obstruction. IMPRESSION: 1. No bowel wall thickening or obstruction. 2. Colonic diverticulosis. No evidence for acute diverticulitis. 3. No hydronephrosis. 4. Cholecystectomy and hysterectomy. 5. Additional findings as described above. ACT 112: Negative or not required by law. Electronically signed by: Blair Valdovinos M.D. 08/19/2022 5:56 PM
[2022-08-19] MEDS ORDERED: diphenhydrAMINE 50 MG/ML VIAL IV STA (18:03)
[2022-08-19] MEDS ORDERED: PROCHLORPERAZINE 2 ML IV ONE (18:04)
[2022-08-19] MEDS ORDERED: dexAMETHasone**PF** 10 MG/ML VIAL IV ONE (18:05)
--- NOTE | 2022-08-19 19:10 | Electrocardiogram Report ---
Test Reason : Blood Pressure : / mmHG Vent. Rate : 056 BPM Atrial Rate : 056 BPM P-R Int : 206 ms QRS Dur : 092 ms QT Int : 500 ms P-R-T Axes : 074 -22 030 degrees QTc Int : 482 ms Sinus bradycardia Inferior infarct , age undetermined Anterior infarct , age undetermined Abnormal ECG No previous ECGs available Confirmed by Florencio Armstrong ([id number]) on 08/19/2022 7:10:17 PM Referred By: Confirmed By:Florencio Armstrong
[2022-08-19 19:23] LABS: Adenovirus PCR Not Detected (NotDetected); Bordetella parapertussis PCR Not Detected (NotDetected); Bordetella pertussis PCR Not Detected (NotDetected); Chlamydia pneumoniae PCR Not Detected (NotDetected); Coronavirus 229E PCR Not Detected (NotDetected); Coronavirus HKU1 PCR Not Detected (NotDetected); Coronavirus NL63 PCR Not Detected (NotDetected); Coronavirus OC43PCR Not Detected (NotDetected); Human Metapneumovirus PCR Not Detected (NotDetected); Influenza A PCR Not Detected (NotDetected); Influenza B PCR Not Detected (NotDetected); Mycoplasma pneumoniae PCR Not Detected (NotDetected); Parainfluenza Virus 1 PCR Not Detected (NotDetected); Parainfluenza Virus 2 PCR Not Detected (NotDetected); Parainfluenza Virus 3 PCR Not Detected (NotDetected); Parainfluenza Virus 4 PCR Not Detected (NotDetected); Respiratory Syncytial VirusPCR Not Detected (NotDetected); Rhinovirus/Enterovirus PCR Not Detected (NotDetected)
[2022-08-19 19:36] LABS: Coronavirus CoV-2 (COVID19)PCR DETECTED (NotDetected)
[2022-08-19] MEDS ORDERED: ONDANSETRON INJ 2 MG/ML 2 ML VIAL IV PRN (22:40)
[2022-08-19] MEDS ORDERED: NITROGLYCERIN SL 0.4 MG/TAB TAB SL PRN (22:40)
[2022-08-19] MEDS ORDERED: ACETAMINOPHEN 1,000 MG/100 ML VIAL IV PRN (22:40)
[2022-08-19] MEDS ORDERED: VANCOMYCIN CONSULT ACTIVE PRN (22:40)
[2022-08-19] MEDS ORDERED: VANCOMYCIN HCL 1,000 MG in SODIUM CHLORIDE 0.9% 250 ML IV SCH (22:40)
[2022-08-19] MEDS ORDERED: VANCOMYCIN HCL 2,250 MG in SODIUM CHLORIDE 0.9% 500 ML IV ONE (23:15)
--- NOTE | 2022-08-19 23:26 | History and Physical Report ---
DATE OF ADMISSION: 08/19/2022. CHIEF COMPLAINT: Confusion, headache, recent COVID. HISTORY OF PRESENT ILLNESS: A 76-year-old female with past medical history significant for history of CAD, not on beta-fuad due to chronotropic incompetence, had fatigue, which resolved after stopping beta-fuad, history of hypertension, hyperlipidemia, history of chronic kidney disease, stage III, and history of recent COVID, who presents with headache and confusion. The patient was diagnosed with COVID on 08/06/2022. She saw family doctor on 08/11/2022 via telemedicine. Paxlovid was no given because of kidney disease and family doctor prescribed prednisone 20 mg daily for 5 days and also Flonase. Lives with her , seems to be getting severe headaches and was getting on and off confusion today and that is the reason she was brought into hospital. She was afebrile. Her blood pressure was high when she came in 233/96 .On labs and she has no leukocytosis. ABGs were okay. Creatinine is 1.5, which is around baseline. Initially, when she came in, lactic acid was 3.4. She received fluids, repeat is 1.7. Urinalysis, +1 leukocyte esterase, but negative fo bacteria. Respiratory BioFire was positive for COVID. CT of the head and CTA of the chest and CT of abdomen and pelvis were mostly unremarkable. The patient was given a dose of Decadron, cefepime, Compazine, Benadryl, fluids, Pepcid and Tylenol in the ER. Headache has improved. Blood pressure is improving. After fluids, the patient mental status improved as per ER. Currently, resting comfortably and hemodynamically stable. She says the headache is getting better. She is alert and oriented, able to give the history. Denies any dizziness, no blurred visions. Has some mild runny nose and sore throat from recent COVID. No cough. Denies any shortness of breath, no chest pain. She says she has a couple of episodes of vomiting today with bilious material, nausea has improved currently. No abdominal pain. Normal bowel and bladder movements. She ambulates without support at home. She says her appetite is okay. No difficulty swallowing. ALLERGIES: TO LATEX, SULFA ANTIBIOTICS, CIPROFLOXACIN, FAMOTIDINE, METRONIDAZOLE. PAST MEDICAL HISTORY: As mentioned above. PAST SURGICAL HISTORY: Carpal tunnel surgery, colonoscopy, cardiac catheterization, dilatation and curettage, EGD, appendectomy, cholecystectomy, right tendon sheath incision, total hysterectomy. MEDICATIONS: The patient is on vitamin C 500 mg p.o. daily, aspirin 81 mg p.o. daily, calcium carbonate plus vitamin D 1 tablet p.o. daily, Premarin 0.625 mg vaginal 2 times a week, dicyclomine 10 mg p.o. q.i.d., Flonase 2 sprays intranasal a.m., Linzess 72 mcg p.o. a.m., Ocuvite Lutein 25 one capsule p.o. daily, multivitamin 1 tablet p.o. daily, ramipril 5 mg p.o. a.m., rosuvastatin 40 mg p.o. a.m., zinc 50 mg p.o. daily. FAMILY HISTORY: Significant for brother has heart disorder; father has heart disorder; mother has stroke. SOCIAL HISTORY: , lives with . Quit smoking in 1978. Smoked 2 packs a day for 17 years. Alcohol occasional. No drug use. REVIEW OF SYSTEMS: As per HPI. Rest of review of systems is negative. PHYSICAL EXAMINATION: GENERAL: The patient is alert and oriented x3. VITAL SIGNS: Temperature when she came in was 35.6, currently 36.2, pulse 64, respiratory rate 24, blood pressure 155/62, oxygen 100% on room air. HEENT: Pupils equal, round and reactive to light. Oral mucosa moist. NECK: No JVD. No masses. CARDIOVASCULAR: S1 and S2 heard. Regular rate and rhythm. No murmur, no gallop. RESPIRATORY SYSTEM: Normal AP diameter. No accessory muscle use. No wheezing or crackles. ABDOMEN: Soft, bowel sounds present, nontender, no distention. CENTRAL NERVOUS SYSTEM: Alert and oriented x3, obese. Obeys simple commands. Insight is okay. Speech is clear. No facial droop. Moves extremities. EXTREMITIES: No edema, no erythema. LABORATORY DATA: WBC 10.7, hemoglobin 13.9, hematocrit 40.5, platelets 203. Venous blood gas, pH of 7.49, pCO2 34, pO2 27. Sodium 137, potassium 3.5, chloride 103, bicarbonate 23, BUN 38, creatinine 1.5, serum glucose 114, lactate 3.4, repeat is 1.7, calcium 8.7, phosphorus 2.8, magnesium 1.9, total bilirubin 0.6, direct bilirubin 0.1, AST 35, ALT 46, alkaline phosphatase 32. Troponin I high sensitivity 5.8. Procalcitonin less than 0.05. TSH 3.02. Urinalysis, +1 leukocyte esterase, bacteria negative. Respiratory BioFire SARS-CoV-2 PCR positive. IMAGING DATA: Chest x-ray, mild cardiomegaly, mild interstitial thickening, which is likely chronic. No focal lung consolidation to suggest pneumonia. CT of the head without contrast, no acute findings. CTA chest, no evidence of pulmonary embolus, mild cardiomegaly, progressive mild interstitial thickening seen along the periphery and lung bases. This favors chronic interstitial lung disease. Otherwise, no new focal consolidation to suggest pneumonia. Stable scattered subcentimeter pulmonary nodules, which are likely benign. CTA abdomen and pelvis with IV contrast, no bowel wall thickening or obstruction, colonic diverticulosis, no evidence of acute diverticulitis. No hydronephrosis. EKG: Sinus bradycardia at 56. Q-waves in inferior leads. ASSESSMENT AND PLAN: This is a 76-year-old female, who presents with severe headache and confusion, and was recently diagnosed with COVID on 08/06/2022. 1. Fever, headaches, confusion. Hypertensive urgency when she came in. With the fluids and medication currently, her headache is improving. Blood pressure better now. Received iv Tylenol. She was diagnosed with COVID on 08/06/2022 and Paxlovid was not given because of kidney disease and she was given prednisone and Flonase on 08/11/2022 for 5 days. Currently, CT of the head was okay. CTA of the chest and abdomen are okay. There was a plan in the ER for doing CTA head and neck and also CT venogram of the head to rule out any thrombosis, but her symptoms are improving and had already had contrast so holding it for now. If worsening, we will do the studies. We will closely monitor in the hospital. 2. Possible sepsis. When she came in, she was hypothermic and also lactic acid was 3.4. Possible urinary tract infection. Empirically treated him with cefepime and fluids. Lactic acid improved. We will continue cefepime and also IV vancomycin. If mrsa swab negative, we will stop the vancomycin. Continue IV normal saline at 125 mL per hour. Follow the cultures. Continue Tabitha Hugger for now. Closely monitor. 3. Hypertensive urgency. When she came in, systolic blood pressure was high in 200s, currently much improved. We will continue home medication of ramipril. We will monitor the blood pressure. For now, it is improving. 4. Chronic kidney disease, stage III. Currently creatinine of 1.5, which seems to be at baseline. We will follow the labs. 5. History of coronary artery disease. Not on beta-fuad because of chronotropic incompetence. On statin and aspirin. 6. Hyperlipidemia. On statin. 7. Deep vein thrombosis prophylaxis: On Lovenox. DISPOSITION: Closely monitor in the tele floor. Level 1 full code. PT, OT prior to discharge. Social service to help with discharge planning. Job ID: [id number] MTDMaria Alejandra
[2022-08-20] MEDS: ENOXAPARIN INJ 40 MG/0.4 ML SYR SQ SCH ×2 (02:11→12:18)
[2022-08-20] MEDS: DICYCLOMINE HCL 10 MG CAP PO SCH ×3 (02:11→11:01)
[2022-08-20] MEDS ORDERED: CEFEPIME 2,000 MG in SYRINGE 0 ML IV SCH (04:00)
[2022-08-20] MEDS ORDERED: linaCLOtide 72 MCG CAPSULE PO SCH (06:30)
[2022-08-20 06:38] LABS: Hematocrit (blood only) 37.5 % (37.0-47.0); Hemoglobin 12.8 g/dl (12.0-16.0); Mean Corpuscular Hemoglobin 29.6 pg (25.0-34.0); Mean Corpuscular Hgb Conc 34.1 g/dL (32.0-36.0); Mean Corpuscular Volume 86.8 fL (80.0-100.0); Mean Platelet Volume 11.1 fL (9.4-12.4); Platelet Count 174 K/uL (130-400); RDW Coefficient of Variation 13.2 % (11.5-14.5); RDW Standard Deviation 41.4 fL (36.4-46.3); Red Blood Count 4.32 M/uL (4.20-5.40); White Blood Count 9.68 K/ul (4.8-10.8)
[2022-08-20 06:43] LABS: BUN Creatinine Ratio 20.8 (10-20); Calcium 7.9 mg/dl (8.5-10.1); Creatinine Clr Calc Pharmacy 39.4 ml/min; Est GFR (African American) 40.8 ml/min; Est GFR (Non-African American) 35.2 ml/min; Magnesium 1.9 mg/dl (1.7-2.4); Potassium 4.8 mmol/L (3.5-5.1)
[2022-08-20 07:06] LABS: Basophils # (auto) 0.01 K/uL (0-0.2); Basophils % (auto) 0.1 %; Immature Granulocytes # (auto) 0.04 K/uL (0.01-0.20); Immature Granulocytes % (auto) 0.4 %; Lymphocytes # (auto) 0.61 K/uL (1.2-3.4); Lymphocytes % (auto) 6.3 %; Monocytes # (auto) 0.16 K/uL (0.11-0.59); Monocytes % (auto) 1.7 %; Neutrophils # (auto) 8.86 K/uL (1.40-6.50); Neutrophils % (auto) 91.5 %
[2022-08-20] MEDS ORDERED: ZINC SULFATE 220 MG CAPSULE PO SCH (09:00)
[2022-08-20] MEDS ORDERED: ASPIRIN 81 MG ECTAB PO SCH (09:00)
[2022-08-20] MEDS ORDERED: VANCOMYCIN HCL 1,250 MG in SODIUM CHLORIDE 0.9% 250 ML IV SCH (09:00)
[2022-08-20] MEDS ORDERED: FLUTICASONE PROPIONATE NA SPR 16 GM BTL SCH (09:00)
[2022-08-20] MEDS ORDERED: ASCORBIC ACID 500 MG TAB PO SCH (09:00)
[2022-08-20] MEDS ORDERED: MULTIVITAMIN TAB PO SCH (09:00)
[2022-08-20] MEDS ORDERED: ROSUVASTATIN CALCIUM 20 MG TAB PO SCH (09:00)
[2022-08-20] MEDS ORDERED: ENALAPRIL MALEATE 10 MG TAB PO SCH (09:00)
[2022-08-20] MEDS ORDERED: CALCIUM 600MG + VIT D 400 IU TAB PO SCH (09:00)
[2022-08-20] MEDS ORDERED: NON-FORMULARY MEDICATION (Lutein-Zeaxanthin [Ocuvite Lutein 25] 25-5 mg Capsule) PO SCH (09:00)
--- NOTE | 2022-08-20 12:20 | Pharmacy Report ---
Pharmacy PK ABX Note - Date of Service August 20, 2022 - Assessment and Plan Assessment 76 year old F receiving cefepime/vancomycin for empiric treatment. Pertinent microbiologic data includes: negative MRSA nasal swab, procal <0.05, normal white count, urine culture No growth (<1,000 CFU/ml), blood cultures pending. SCR improved, unknown baseline. Day # 1 of antimicrobial therapy. Plan Vancomycin * Loading dose: 2250 mg IV x 1 * Maintenance dose: 1250 mg IV every 24 hours * Regimen is predicted to achieve target AUC/IRENE of 400-600 mg/L.hr * Will order level if continued >48 hours, expect discontinuation Pharmacy will continue to follow and will adjust dose/frequency as necessary. Thank you. Pharmacy has transitioned to AUC monitoring for vancomycin. AUC/IRENE is the preferred PK/PD target and is associated with decreased risk of nephrotoxicity compared to traditional trough targets.
--- NOTE | 2022-08-20 13:09 | Discharge Summary ---
Discharge Summary Date of Service August 20, 2022 Notes For Next Care Provider sepsis was ruled out in the hospital Medication Changes From Visit no changes, avoid steroids Principal Dx & Hospital Course #1 = Principal Diagnosis (1) Metabolic encephalopathy: Metabolic and/or hypertensive encephalopathy due to sepsis and/or hypertensive emergency (2) SIRS (systemic inflammatory response syndrome): (3) Hypertensive urgency: (4) Headache: (5) CKD (chronic kidney disease), stage III: (6) COVID-19: Plan The patient is a 76-year-old female who presented to the ER with headache and confusion. She had been diagnosed with COVID-19 on 08/06 and saw a family doctor via telemedicine on 08/11. Paxlovid was not entertained because of chronic kidney disease and she was prescribed prednisone 20 mg daily for 5 days with Flonase. She developed severe headaches and was reporting intermittent confusion. When she was brought to the hospital sepsis was entertained and her lactic acid was 3.4. She received IV fluids and this resolved. Broad-spectrum antibiotics were started and she was hypothermic requiring a Tabitha hugger. Ultimately no infection was found including no pneumonia, UTI or other infection. Respiratory bio fire was still positive for COVID-19. CT of the head and a CTA of the chest and CT of the abdomen pelvis were mostly unremarkable. She was given a dose of Decadron in the ER as well as other supportive therapies including Benadryl fluids Pepcid and Tylenol as well as Compazine. Her headache did improve and her blood pressure improved, initially very elevated at 233/96. The following day she was normothermic hemodynamically stable and feeling back to her baseline. She was not requiring oxygen and was able to ambulate at her baseline around the room. She felt fine to return home and was studies not supportive of an infection sepsis was ruled out. It is thought possibly the steroids led to hypertensive urgency causing headache or confusion. Another possible cause of her presentation may be the use of adkf-hkc-rjavoca medicine such as OTC Coricidin which may have caused a hypertensive urgency and subsequent symptoms. Blood pressure was improved at time of discharge. Close primary care follow-up was recommended. By CMS guidelines, a determination that the admission or continued stay is not medically necessary has been made by a member of the Utilization Review committee and a physician for this hospital stay. Therefore, a Code 44 will be completed and the inpatient admission will be changed to outpatient. Updated Medication List Medication Instructions Recorded Confirmed Type Elderberry Tab 500 mg PO DAILY 08/19/22 08/19/22 History ascorbic acid (vitamin C) 500 mg 500 mg PO DAILY 08/19/22 08/19/22 History tablet (Vitamin C) aspirin 81 mg tablet,delayed 81 mg PO DAILY 08/19/22 08/19/22 History release calcium carbonate-vitamin D3 600 1 tab PO DAILY 08/19/22 08/19/22 History mg-125 unit tablet conjugated estrogens 0.625 mg/gram 0.625 mg vaginal 2XWK 08/19/22 08/19/22 History vaginal cream (Premarin) dicyclomine 10 mg capsule 10 mg PO QID 08/19/22 08/19/22 History fluticasone propionate 50 2 spray intranasal QAM 08/19/22 08/19/22 History mcg/actuation nasal spray,suspension linaclotide 72 mcg capsule 72 mcg PO QAM 08/19/22 08/19/22 History (Linzess) lutein 25 mg-zeaxanthin 5 mg 1 cap PO DAILY 08/19/22 08/19/22 History capsule (Ocuvite Lutein) multivitamin 1 tab PO DAILY 08/19/22 08/19/22 History ramipril 5 mg capsule 5 mg PO QAM 08/19/22 08/19/22 History rosuvastatin 40 mg tablet 40 mg PO QAM 08/19/22 08/19/22 History zinc 50 mg tablet 50 mg PO DAILY 08/19/22 08/19/22 History Hospital Stay Data Consultations 08/19/22 19:03 ED Decision to Admit Stat Diagnostic Imagining Performed 08/19/22 15:47 CT abd pelvis IV con only Stat CT angio chest PE protocol Stat CT head/brain wo con Stat Pending Results Patient Have Any Pending Studies at Discharge: Yes Discharge Instructions Given to Patient (Per Discharging Provider) Please continue all medications as instructed on the discharge list below. It is thought that you either had a strong reaction to taking the recent steroid which caused high blood pressure and headache, or that your blood pressure climbed on it's own possibly contributing to your headache. You were initially treated for possible sepsis but were not found to have any infection other than covid. Please continue flonase nasal spray for symptoms of nasal congestion and avoid additional steroids at this time. Please followup with your primary care physician within one week of hospital discharge to ensure you are still doing well after returning home and to recheck your blood pressure. Please remain on home isolation away from others for 10 days since symptom onset for covid-19. After this please mask in public places and if coughing and social distance where appropriate. It was a pleasure taking care of you! Please call if you have any questions or problems. You can reach a [facility] hospitalist on duty at [facility] 24 hours a day by calling [phone]. Take care of yourself. Thelma Eagle, DO [facility] Center[facility] Total Time Total Time Spent Total Time Spent (In Minutes): 60
--- NOTE | 2022-08-20 13:19 | Communication Note ---
Date of Service: August 20, 2022 By CMS guidelines, a determination that the admission or continued stay is not medically necessary has been made by a member of the UR committee and oziel orellana for this hospital stay, therefore a Code 44 will be completed and the Inpatient admission will be changed to outpatient. Carol Clement M.D.
[2022-08-20] MEDS: SODIUM CHLORIDE 0.9% 1000ML 1,000 ML IV SCH (13:26)
== END 2022-08-20 13:54 | disposition home or self-care (01) ==
LOC: ED 15:20 → INTOOBSV 19:34 → EDINP 19:34 → 2S 08-20 00:01